=== PATIENT | male | born 1985 | race Caucasian/White ===

== ENCOUNTER 2019-01-26 20:45 | Emergency (ER) | payer BC, OTHER, SELFPAY ==
[~2019-01-26] VITALS: Ht 180.3 cm; Wt 65.0 kg
[2019-01-26 23:13] VITALS: BP 104/50
== END 2019-01-26 23:19 | disposition home or self-care (01) ==
LOC: ED 23:13
DX: G44.219 Episodic tension-type headache, not intractable (principal)
CPT/HCPCS: 96374; 96375; 99283; J0780; J1200; J1885